=== PATIENT | male | born 1965 | race Caucasian/White ===

== ENCOUNTER → 2016-09-09 | Outpatient (CLI) | payer BC ==
--- NOTE | 2016-09-09 15:49 | DIAGNOSTIC IMAGING REPORT ---
LEFT ANKLE MIN 3 VIEWS ROUTINE CLINICAL HISTORY: Left ankle pain following injury. COMPARISON: None FINDINGS: Alignment of the left ankle is anatomic. There is no acute fracture. There is moderate ankle soft tissue swelling. There is moderate plantar calcaneal spurring. IMPRESSION: 1. No acute fracture or dislocation of the left ankle. 2. Moderate ankle soft tissue swelling. Electronically signed by: Darryl Moses M.D. 09/09/2016 3:47 PM Dictated Date/Time: 09/09/2016 3:46 PM
== END | disposition home or self-care (01) ==
LOC: C.RAD 15:16
PROVIDERS: ATTEND Physician Assistant Medical
DX: S99.912A Unspecified injury of left ankle, initial encounter (principal); X58.XXXA Exposure to other specified factors, initial encounter